=== PATIENT | male | born 1985 | race Caucasian/White ===

== ENCOUNTER 2017-07-16 08:15 | Day surgery (SDC) | payer OTHER ==
--- NOTE | 2017-07-02 08:24 | HP ---
PREOPERATIVE HISTORY AND PHYSICAL: DATE OF ADMISSION/SURGERY: 07/16/17 DATE OF OFFICE VISIT: 06/28/17 ATTENDING SURGEON: Dr. Xavier Lopez.* (DICTATED BY SNEHA NG) PROCEDURE: Right shoulder arthroscopic labral repair, subpectoral biceps tenodesis. CHIEF COMPLAINT: Right shoulder pain and instability. HISTORY OF PRESENT ILLNESS: Raffi is a 32-year-old male, who presents to the clinic for right shoulder pain and instability due to a work-related injury. He had an initial dislocation in 2000, but then had a recent subsequent dislocation. He has failed conservative measures to include therapy, exercise, and therefore has agreed to undergo a right shoulder arthroscopic labral repair and subpectoral biceps tenodesis with Dr. Lopez on 07/16/17. PAST MEDICAL HISTORY: Back pain due to slipped disk and history of MSSA. PAST SURGICAL HISTORY: Appendectomy, wisdom teeth removal. The patient denies prior complications with anesthesia. MEDICATIONS: 1. Multivitamins 1 by mouth daily. 2. Ibuprofen 200 mg 2 to 3 tabs every 6 hours as needed for pain. 3. Fish oil 1000 mg 1 by mouth twice a day. 4. Iron 325 mg 1 by mouth every day. ALLERGIES: CECLOR. FAMILY HISTORY: Positive for heart disease and cancer. Denies family history of DVT or PE. 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 He denies smoking. He does have a history of chewing tobacco, but quit 3 years ago. He reports occasional alcohol consumption. He denies illegal drug use. REVIEW OF SYSTEMS: A 14-point review of systems was reviewed with the patient. Positive for current complaint, otherwise negative. Denies chest pain, shortness of breath, fever, chills, history of bleeding disorder, history of DVT or PE, or history of MRSA, history of hep C or HIV. PHYSICAL EXAMINATION GENERAL: A 32-year-old, well-developed, well-nourished male, in no acute distress. Alert and oriented x3. Appropriate mood and affect. Appropriate balance and coordination of the upper extremities. VITAL SIGNS: Height 69, weight 153, pulse 57, blood pressure 90/60, temperature 97, BMI of 22.6. HEENT: Normocephalic, atraumatic. PERRLA. Throat clear. NECK: Supple. PULMONARY: Lungs clear to auscultation bilaterally. No wheezing, rhonchi or rales. CARDIAC: Regular rate and rhythm. S1 and S2. No murmurs, gallops or rubs. No edema. ABDOMEN: Positive bowel sounds, soft, nontender. NEURO: Alert and oriented x3. Cranial nerves grossly intact. Sensation intact to light touch. MUSCULOSKELETAL: Right upper extremity: Skin is intact. No warmth or erythema. Tenderness over the bicipital groove. Forward flexion and abduction to 165, external rotation to 75, internal rotation to T6. +5/5 strength with rotator cuff testing with some pain. Positive impingement, Speeds, Clements- Marciano, Casper's. +1 to 2 anterior glide, negative sulcus sign, positive apprehension relocation test. +2 radial pulse. Sensation is intact to light touch distally. DIAGNOSTIC STUDIES: MR arthrogram of the right shoulder revealed anterior labral tear and a chronic Hill-Sachs lesion. IMPRESSION: Right shoulder labral tear and biceps tendinitis. PLAN: The patient is scheduled to undergo a right shoulder arthroscopic labral repair, subpectoral biceps tenodesis with Dr. Lopez on 07/16/17. Percocet will be used for postop pain management and clindamycin for antibiotic prophylaxis. He will be out of work from the date of surgery until further notice. He will follow up in 10 to 14 days postop for followup and suture removal. SNEHA NG [id number]/[facility] #: [id number] BASSEM
[~2017-07-16 08:15] MED LIST: Buffered Lidocaine 0.9% SYRIN* 5 ML/SYR SYRINGE INTRADERM ONE; Bupivacaine 0.5% SDV PF* 30ML VIAL ONE; Dexamethasone TAB* 4 MG ONE; Dexamethasone TAB* 4 MG PO ONE; DiMENhydriNATE IV* 50 MG/ML VIAL IV PUSH PRN; Famotidine IV* 10 MG/ML 2 ML (20 mg) IV ONE; Famotidine IV* 10 MG/ML 2 ML (20 mg) ONE; Morphine INJ* 2 MG/ML 1 ML CARPUJECT IV PRN; Naloxone* 0.4 MG/ML 1 ML VIAL IV PRN; Ondansetron INJ* 2 MG/ML VIAL ONE; PROCHLORPERAZINE INJ 5 MG/ML 2 ML VIAL IV PRN; Scopolamine 1.5 mg* PATCH TRANSDERM PRN; fentaNYL* 50 MCG/ML 2 ML VIAL (100 MCG VIAL) IV PRN; oxyCODONE/Acetamin 5/325 MG* TAB PO PRN
[2017-07-16] MEDS ORDERED: Clindamycin 900 MG IVPREMIX(* 900 MG/50 ML SDV IV ONE (08:22)
[2017-07-16] MEDS ORDERED: Midazolam* 1 MG/ML 5 ML VIAL (5 MG) ONE (09:02)
[2017-07-16] MEDS ORDERED: fentaNYL* 50 MCG/ML 2 ML VIAL (100 MCG VIAL) ONE (09:02)
[2017-07-16] MEDS ORDERED: Bupivacaine 0.5% SDV PF* 30ML VIAL ONE (09:41)
[2017-07-16] MEDS ORDERED: Lidocaine 2% PF * 5 ML VIAL ONE (10:29)
[2017-07-16] MEDS ORDERED: PROCHLORPERAZINE INJ 5 MG/ML 2 ML VIAL ONE (10:29)
[2017-07-16] MEDS ORDERED: Propofol* 10 MG/ML 20 ML BTL IV PUSH ONE (10:29)
[2017-07-16] MEDS ORDERED: Ketorolac INJ* 30 MG/ML 1 ML VIAL ONE (10:29)
[2017-07-16 12:30] VITALS: BP 107/64
--- NOTE | 2017-07-17 09:52 | OP ---
DATE OF OPERATION: 07/16/17 [facility] DATE OF : 87 ATTENDING SURGEON: Xavier Lopez MD [employer] SUPERVISOR: SNEHA Pickett ANESTHESIOLOGIST: Dr. Leon. ANESTHESIA: General with interscalene block. PRE-OP DIAGNOSIS: Right shoulder recurrent dislocation, anterior instability, and superior labral tear. POST-OP DIAGNOSIS: Right shoulder recurrent dislocation, anterior instability and superior labral tear, and mild chondrosis of the glenohumeral joint with partial tearing of the supra and subscapularis tendon. OPERATIVE PROCEDURE: 1. Right shoulder arthroscopy with extensive glenohumeral debridement including chondroplasty as well as debridement of the rotator cuff. 2. Anterior labral repair. 3. Subpectoral biceps tenodesis. COMPLICATIONS: None. ESTIMATED BLOOD LOSS: Minimal. IMPLANTS: Three Galvan and Nephew Bioraptors and one 2.8 mm suture Q-Fix. 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 He had subsequent repeated dislocations and has had persistent pain and recurrent dislocations and subluxations. Risks and benefits of surgery were discussed in length including but not limited to bleeding, infection, damage to nerves, vessels, surrounding structures, wound nonhealing, persistent pain, need for further surgery, scarring, stiffness, incomplete relief of symptoms, risk of worsening arthritis, risk of anesthesia, need for surgery. He has elected to proceed. DESCRIPTION OF PROCEDURE: The patient was greeted in the preoperative area by the attending surgeon. Correct extremity was marked, consent was confirmed. He underwent interscalene nerve block by the anesthesiologist, after which he was brought back to the operating suite. He was placed in a supine position on the operating room table where he underwent general anesthesia, endotracheal intubation, after which he was placed in a left lateral decubitus position with all bony prominences padded. He was secured with a peg board. An axillary roll was placed. The right arm was draped unsterile with 10 pounds of traction. There was a grade 3 shoulder instability. The right shoulder was then prepped and draped in the usual sterile fashion beginning with chlorhexidine soap, scrub, and alcohol wipe and a final prep with ChloraPrep. After appropriate surgical pause indicating side, site, procedure, and administration of antibiotics, the standard postero-lateral portal was made sharply with an 11 blade. The scope was introduced into the joint. The joint was examined. There was some chondrosis of the glenohumeral joint with grade 1 and 2 changes. There was a large anterior Bankart lesion that was displaced with some bony components to this. The undersurface of the supraspinatus and the subscapularis had partial thickness tearing. There was damage to the biceps lexi as well as superior labrum. There was a significant amount of synovitis and inflammation in the joint. The low anterior portal was made in an outside-in fashion and then 8 mm cannula was placed there. At this point, the biceps was tenotomized for later tenodesis. A second cannula was placed further superior in the interval to be as the suture shuttling cannula. The shaver was used to debride back due to small chondroplasty as well as debride the undersurface of the subscapularis and supraspinatus. The posterior labrum was visualized and found to be intact although mild fraying. There was positive drive-through sign as the anterior labrum was displaced medially. The elevators were used to gently elevate the labrum in conjunction with the capsule. There was obvious bone intermixed in this, but it was a small amount of bone. This was carefully elevated for later methodist. The tissue quality was very thick. The glenoid was rasped using the double-edge rasp, the small ball rasp, and the shaver to allow for bony bleeding bed. The capsule was also carefully rasped as well. After the glenoid and the labrum was prepared, the anchor placement began. Beginning at the 5:30 position, a Bioraptor was placed with excellent purchase. Sutures were passed in a horizontal mattress configuration. Some of the bony Bankart was then enmeshed with this. This was then tied down using arthroscopic knot tying technique. Second anchor was placed at the 4:30 position. Again, the suture was passed and encompassed some pieces of bone as well as the capsule in the labrum. This was passed in a simple fashion and then tied down using arthroscopic knot tying. A third anchor was placed at the 3:30 position, passed in a simple fashion and tied down. This helped to restore the humerus to the center of the glenoid. The images were taken of the Hill-Sachs which was found to be not engaging but is a large broad Hill-Sachs lesion, but not very deep. The scope was brought through the anterior portal and visualized to see that the head was sitting centered and there was no evidence of unstable posterior labral tear. At this point, all fluid and debris was removed from the shoulder. The attention was directed to the biceps. The bed was air planed to the right side. The anterior aspect of the shoulder was prepped again using the ChloraPrep. A 15 blade was used to make an incision in line with the biceps tendon. The soft tissue carefully dissected to expose the pec fascia. The remainder of the dissection was done bluntly. The groove was palpated and the biceps was brought through the groove and was found to have abundant synovitis and erythema. The groove was then prepared in the usual fashion with electrocautery, red ball rasp, and the osteotome to allow for bony bleeding bed. The Q-Fix was drilled unicortically and the Q-Fix was deployed with excellent purchase. Sutures were then passed through the tendon approximately 1 cm proximal to the musculotendinous junction and then the excess stump was excised. The biceps was shuttled back to the wound and tied down. The wounds were copiously irrigated with sterile saline. The portals were closed with 3-0 nylon. The anterior wound was closed with layers with 2-0 Vicryl and 3-0 Monocryl. The anterior wound was injected with 15 cc of 0.5% Marcaine plain. Sterile dressings were applied as well as a Cryo/Cuff and UltraSling. He was awoken from anesthesia and transferred to PACU in stable condition. POSTOPERATIVE PLAN: He will be nonweightbearing. He will be in a sling for approximately 4 to 5 weeks. He will be discharged on pain medications, antibiotics. I will see the patient back in 10 to 14 days. [id number]/[facility] #: [id number] BASSEM
[2017-07-19] MEDS ORDERED: Scopolamine PATCH Remove* 1 NOTE MISC PATCH OFF ONE (05:45)
== END 2017-07-16 12:34 | disposition home or self-care (01) ==
LOC: OREAST 08:15
PROVIDERS: ATTEND Orthopaedic Surgery
DX: S46.011A Strain of muscle(s) and tendon(s) of the rotator cuff of right shoulder, initial encounter (principal); S43.491A Other sprain of right shoulder joint, initial encounter; M24.411 Recurrent dislocation, right shoulder; M75.21 Bicipital tendinitis, right shoulder; X58.XXXA Exposure to other specified factors, initial encounter; Y92.89 Other specified places as the place of occurrence of the external cause; Y99.0 Civilian activity done for income or pay; G89.18 Other acute postprocedural pain
CPT/HCPCS: C1776; J0780; J1885; J2250; J2704; J3010; J8540

== ENCOUNTER 2018-11-29 07:07 | Emergency (ER) | payer BC, OTHER ==
[2018-11-29 07:26] VITALS: BP 118/72
--- NOTE | 2018-11-29 07:44 | UC ---
Ear Complaint HPI - HPI Summary HPI Summary: 33-year-old male comes in with a chief complaint of right ear pain. Been going on for about 4 days. Is ear canal was itching and he did scratch it and then he started with pain. Pain shoots deeper into the ear and then sometimes onto the right side of the face in the right yarsanism area. No runny nose no sore throat no dental pain. No rash. No fevers or chills. - History of Current Complaint Chief Complaint: UCEar Stated Complaint: RT EAR COMPLAINT Time Seen by Provider: 11/29/18 07:31 Pain Intensity: 5 - Allergies/Home Medications Allergies/Adverse Reactions: Allergies Allergy/AdvReac Type Severity Reaction Status Date / Time cefaclor [From [facility]] Allergy Rash Verified 11/29/18 07:17 Home Medications: Home Medications Ibuprofen TAB* [Advil TAB*] 400 mg PO Q6H PRN 11/29/18 [History Confirmed ] PMH/Surg Hx/FS Hx/Imm Hx Previously Healthy: Yes - Surgical History Surgical History: Yes Surgery Procedure, Year, and Place: appendectomy 2010. SHOULDER AND BICEPT SURGERY 2017 - Family History Known Family History: Positive: None, Other - cancer - Social History Alcohol Use: Occasionally Alcohol Amount: 5-6 per week Substance Use Type: None Smoking Status (MU): Never Smoked Tobacco Type: Smokeless Tobacco Amount Used/How Often: chewed in the past, When Did the Patient Quit Smoking/Using Tobacco: 2014 - Immunization History Most Recent Influenza Vaccination: never Most Recent Tetanus Shot: 2008 Most Recent Pneumonia Vaccination: never Review of Systems All Other Systems Reviewed And Are Negative: Yes Constitutional: Positive: Negative Skin: Positive: Negative Eyes: Positive: Negative ENT: Positive: Ear Ache Respiratory: Positive: Negative Cardiovascular: Positive: Negative Gastrointestinal: Positive: Negative Motor: Positive: Negative Neurovascular: Positive: Negative Musculoskeletal: Positive: Negative Neurological: Positive: Negative Psychological: Positive: Negative Is Patient Immunocompromised?: No Physical Exam Triage Information Reviewed: Yes Appearance: Well-Appearing, No Pain Distress, Well-Nourished Vital Signs: Initial Vital Signs Temp 97.2 F 11/29/18 07:19 Pulse 63 11/29/18 07:19 Resp 16 11/29/18 07:19 BP 118/72 11/29/18 07:19 Pulse Ox 100 11/29/18 07:19 Vital Signs Reviewed: Yes Eye Exam: Normal Eyes: Positive: Conjunctiva Clear ENT: Positive: Pharynx normal, TM red - The upper portion of the right TM is erythematous. The behind the ears clear I do not appreciate any pus. There is some inflammation in the external ear canal with some debris., Other - No rash on the side of the face or head. The yarsanism and face are nontender to palpation. The TMs are nontender to palpation. The parotid and submandibular glands are nontender to palpation. The mastoids nontender to palpation.. Negative: Nasal congestion Dental Exam: Normal Neck: Positive: Supple Respiratory: Positive: Lungs clear, Normal breath sounds, No respiratory distress Cardiovascular: Positive: RRR Musculoskeletal: Positive: Strength Intact, ROM Intact Neurological: Positive: Alert, Muscle Tone Normal Psychological: Positive: Age Appropriate Behavior Skin Exam: Normal Ear Complaint Course/Dx - Course Course Of Treatment: Most probable cause of the pain is a right otitis externa and we'll treat that with ofloxacin. The upper portion of the right TM was erythematous therefore we 'll treat with amoxicillin also. Patient reports that he's had amoxicillin in the past without any allergic reactions. Patient is seen Dr. Mario in the past for ENT. The plan is if the patient does not improve he is to follow-up with ENT. I did let him know that if he develops a rash on the side of the face that this would be shingles that he should get reevaluated again right away can be done through ENT or here. Follow-up sooner if worse requests or concerns. - Differential Dx/Diagnosis Provider Diagnosis: Right otitis externa, Right ear pain Discharge ED - Sign-Out/Discharge Documenting (check all that apply): Patient Departure All imaging exams completed and their final reports reviewed: No Studies - Discharge Plan Condition: Stable Disposition: HOME Prescriptions: Amoxicillin PO (*) [Amoxicillin 875 MG (*)] 875 mg PO BID #20 tab Ofloxacin 0.3% (Ear Drop)* [Floxin 0.3% OTIC.KRISTEL (Ear Drop)] 5 drop RIGHT EAR BID #1 btl Patient Education Materials: Otitis Externa (ED), Earache (ED) Referrals: Mumtaz Lala MD [Primary Care Provider] - Tru Mario MD [Medical Doctor] - Alvin Renteria MD [Medical Doctor] - Additional Instructions: FOLLOW UP WITH ENT IF NOT COMPLETELY IMPROVED. GET REEVALUATED SOONER IF NOT IMPROVING OR YOUR CONDITION WORSENS; YOU DEVELOP A RASH, FEVER, YOU FEEL ILL OR ANY QUESTIONS OR CONCERNS - Billing Disposition and Condition Condition: STABLE Disposition: Home
== END 2018-11-29 07:49 | disposition home or self-care (01) ==
LOC: UCCORT 07:07
DX: H60.91 Unspecified otitis externa, right ear (principal); H92.01 Otalgia, right ear; Z88.1 Allergy status to other antibiotic agents; Z87.891 Personal history of nicotine dependence
CPT/HCPCS: 99212; G0463